=== PATIENT | female | born 1980 | race Caucasian/White ===

== ENCOUNTER 2016-12-14 21:09 | Emergency (ER) | payer OTHER ==
[2016-12-14 21:13] VITALS: BP 121/76
--- NOTE | 2016-12-14 21:37 | ED GI/GU/ABDOMINAL COMPLAINT ---
History of Present Illness General Chief Complaint: Female Urogenital Problems Stated Complaint: PT IS 16WKS AND BLEEDING Source: patient Exam Limitations: no limitations Vital Signs & Intake/Output Vital Signs & Intake/Output Vital Signs Date Time Temp Pulse Resp B/P Pulse O2 O2 Flow FiO2 Ox Delivery Rate 12/14 2214 Room Air 12/14 2112 98.0 72 20 121/76 ED Intake and Output 12/15 0000 12/14 1200 Intake Total 0 Output Total Balance 0 Intake, Oral 0 Patient 126 lb Weight Allergies Coded Allergies: azithromycin (hives 12/14/16) Triage Note: per pt 16 weeks started with heavy vaginal bleeding during intercourse Triage Nurses Notes Reviewed? yes ? y Is pt currently ? No Onset: Abrupt Duration: hour(s): Timing: single episode today Quality/Severity: vaginal bleeding, no pain Location: vaginal Radiation: no radiation Activities at Onset: sexual activity Prior Abdominal Problems: none Sexually Active: Yes Last Time You Were Sexual: tonight Sexual Orientation: Heterosexual Use of Protection: No No Modifying Factors: none Associated Symptoms: painless vaginal bleeding HPI: 36 yo woman , 16 weeks of gestation, with prior normal ultrasounds, RH neg with rhogam x 2 thus far, presents with vaginal bleeding. She notes that she had intercourse this evening. Shortly afterwards, she had painless bright red blood with a few clots. She felt no contractions. She did not notice type tissue. She was not dizzy, nor did she have abdominal pain, nausea, vomiting, diarrhea, fever. Past History Travel History Traveled to [place] past 21 day No Medical History Any Pertinent Medical History? see below for history Neurological: NONE EENT: NONE Cardiovascular: NONE Respiratory: NONE Gastrointestinal: NONE Hepatic: NONE Renal: NONE Musculoskeletal: NONE Psychiatric: NONE Endocrine: THYROID Surgical History Surgical History: none Psychosocial History What is your primary language French Tobacco Use: Never used Family History Hx Contributory? No Review of Systems Review of Systems Constitutional: Reports: no symptoms. EENTM: Reports: no symptoms. Respiratory: Reports: no symptoms. Cardiovascular: Reports: no symptoms. GI: Reports: no symptoms. Genitourinary: Reports: no symptoms. Musculoskeletal: Reports: no symptoms. Skin: Reports: no symptoms. Neurological/Psychological: Reports: no symptoms. Hematologic/Endocrine: Reports: no symptoms. Immunologic/Allergic: Reports: no symptoms. All Other Systems: Reviewed and Negative Physical Exam Physical Exam General Appearance: well developed/nourished, mild distress Head: atraumatic, normal appearance Eyes: Bilateral: normal appearance. Ears, Nose, Throat, Mouth: hearing grossly normal Neck: normal inspection Respiratory: normal breath sounds Cardiovascular: regular rate/rhythm Gastrointestinal: normal bowel sounds, soft, non-tender Pelvic: dark blood with small clots in vaginal vault. cervix appears closed. Back: normal inspection Extremities: normal range of motion Neurologic/Psych: no motor/sensory deficits, awake, alert, oriented x 3 Core Measures ACS in differential dx? No Severe Sepsis Present: No Septic Shock Present: No Progress Differential Diagnosis: spontaneous miscarriage vs other Plan of Care: Orders Procedure Date/time Status BLOOD PRODUCT PICKUP 12/15 0041 Active RHO D IMMUNE GLOBULIN - 300MCG 12/14 2217 Active HUMAN BETA HCG TITRE 12/14 2136 Complete COMPREHENSIVE METABOLIC PANEL 12/14 2136 Complete CBC WITHOUT DIFFERENTIAL 12/14 2136 Complete TYPE & SCREEN (NOT X-MATCH) 12/14 2136 Active Laboratory Tests 12/14/160: Anion Gap 11, Estimated GFR > 60, BUN/Creatinine Ratio 16.7, Glucose 88, Calcium 9.5, Total Bilirubin 0.5, AST 23, ALT 27, Alkaline Phosphatase 26, Total Protein 7.1, Albumin 4.0, Globulin 3.1, Albumin/Globulin Ratio 1.3, Beta HCG, Quant 62182.0, CBC w Diff NO MAN DIFF REQ, RBC 3.90 L, MCV 90.1, MCH 30.1, RDW 14.6 H, MPV 7.4, Gran % 63.3, Lymphocytes % 28.8, Monocytes % 6.8, Eosinophils % 0.7, Basophils % 0.4, Absolute Granulocytes 5.6, Absolute Lymphocytes 2.6, Absolute Monocytes 0.6, Absolute Eosinophils 0.1, Absolute Basophils 0, PUBS MCHC 33.4 Initial ED EKG: none Departure Departure Disposition: OTHER GENERAL HOSPITAL (ACUTE) Condition: Stable Clinical Impression Primary Impression: Threatened miscarriage Referrals: PATIENT HAS NO PRIMARY CARE DR (PCP/Family) Departure Forms: Customer Survey General Discharge Information Comments 12/15/16, 0:[address] rosa, her farm operations manager, who suggests transfer [place] proper cage clerk ultrasound and evaluation. 12/15/16, 0:18...discussed with [facility] high energy forming equipment operator, Dr. Gilmore...He is willing to accept patient, but notes there would be no intervention to perform tonight. Discussed at length with patient and her . Follow up at [facility] encouraged. She declines rhogam.
[2016-12-14 21:53] LABS: ABSOLUTE BASOPHIL COUNT 0 /CUMM (0.0-0.2); ABSOLUTE EOSINOPHIL COUNT 0.1 /CUMM (0.0-0.7); ABSOLUTE GRANULOCYTE CT 5.6 /CUMM (1.4-6.5); ABSOLUTE LYMPH COUNT 2.6 /CUMM (1.2-3.4); ABSOLUTE MONOCYTE COUNT 0.6 /CUMM (0.10-0.60); BASOPHIL % 0.4 % (0.0-2.0); EOSINOPHIL % 0.7 % (0-5); GRANULOCYTE % 63.3 % (42.2-75.2); HEMATOCRIT 35.1 % (37-47); MEAN CORPUSCULAR HGB 30.1 PG (27.0-31.0); MEAN CORPUSCULAR HGB CONC 33.4 G/DL (33.0-37.0); MEAN CORPUSCULAR VOLUME 90.1 FL (81.0-99.0); MEAN PLATELET VOLUME 7.4 FL (7.4-10.4); PLATELET COUNT 176 /CUMM (130-400); RBC DISTRIBUTION WIDTH 14.6 % (11.5-14.5); WHITE BLOOD CELL COUNT 8.9 /CUMM (4.8-10.8)
== END 2016-12-15 01:15 ==
LOC: ERH 21:09
PROVIDERS: Pediatrics
DX: O20.0 Threatened abortion (principal)
CPT/HCPCS: 36415; 86920; 86922